=== PATIENT | male | born 1960 | race Caucasian/White ===

== ENCOUNTER → 2016-11-23 | Outpatient (CLI) | payer BC ==
--- OUTSIDE RECORDS SUMMARY | 2016-11-23 15:37 | XMS REPORT | Continuity of Care Document ---
Author Author Formerly [facility], [facility]–1983 [facility] Address Unknown Phone Unavailable Allergies Active Description Code Type Severity Reaction Onset Reported/Identified Relationship to Patient Clinical Status Yes No Known Drug Allergies [id number] Drug Allergy Mild N/A 01/04/2010 Medications Problems Date Dx Coded Attending Type Code Diagnosis Diagnosed By 12/06/2010 Ot 792.2 12/06/2010 Ot V25.8 01/04/2011 Ot V25.8 03/16/2011 Ot 792.2 03/16/2011 Ot V25.8 07/17/2012 V04.81 FLU DX (3 YRS AND ABOVE, IM) 07/17/2012 SOCORRO TRINIDAD DO V04.81 FLU DX (3 YRS AND ABOVE, IM) 01/13/2015 Ot V01.79 01/13/2015 Ot V25.8 01/13/2015 Ot 792.2 01/13/2015 Ot V25.8 01/13/2015 GUILLERMINA WOODS DO Ot 726.2 01/13/2015 GUILLERMINA WOODS DO Ot 840.4 Procedures Results Encounters ACCT No. Visit Date/Time Discharge Status Pt. Type Provider Facility Loc./Unit Complaint [id number] 07/09/2014 11:10:00 07/09/2014 23: 59:59 CLS Outpatient SOCORRO TRINIDAD DO [id number] 07/17/2012 09:51:00 07/17/2012 23: 59:59 CLS Outpatient
--- NOTE | 2016-11-23 17:11 | Diagnostic Imaging Report ---
PROCEDURE: MRI lumbar spine. TECHNIQUE: Multiplanar, multisequence MRI of the lumbar spine was performed without contrast. INDICATION: Chronic back pain with bilateral leg pain and numbness. FINDINGS: There is normal alignment of the posterior spinal line. The vertebral body heights are preserved. There is significant disc height loss at L5/S1 level. Slight disc height loss is also seen in mid lumbar spine levels. The bone marrow demonstrates mild Modic type I and slightly prominent Modic type II changes around endplates in the lower lumbar spine most prominent around L5/S1. There is a 1 cm lesion with fat density within L3 vertebral body suggestive of hemangioma. No suspicious marrow lesion is identified. The posterior elements of L5 on the right side demonstrate prominent bone marrow edema that appears to be centered around the right L4/L5 facet joint presumably related to facet arthropathy. This also involves the adjacent articulating facets and at the adjacent lamina of L4 posterior elements. The cauda equina and conus medullaris appear grossly unremarkable. T12/L1: There is no significant disc herniation. No spinal canal or foraminal stenosis. L1/L2: No disc herniation. There is mild facet hypertrophy. No central canal, lateral recess or foraminal stenosis. L2/L3: There is a diffuse disc bulge and mild to moderate facet arthropathy. There is mild central canal stenosis reducing the AP dimension of the canal to 9.5 mm. There is also mild lateral recess stenosis on the right and mild to moderate lateral recess stenosis on the left. The foramina are patent. L3/L4: There is a diffuse disc bulge and moderate facet arthropathy. There is mild to moderate central canal stenosis reducing the AP dimension of the canal to 8.8 cm. There is mild to moderate lateral recess stenosis bilaterally. The foramina demonstrate no significant stenosis on the right and mild stenosis on the left. L4/L5: There is diffuse disc bulge and bilateral moderate to severe facet arthropathy. There is mild to moderate central canal stenosis reducing the AP dimension of the canal to 7.6 mm. Moderate to severe lateral recess stenosis is seen bilaterally abutting the descending L5 nerve roots. This is slightly worse on the right side. The foramina demonstrate mild stenosis bilaterally. L5/S1: There is a diffuse disc bulge and mild facet arthropathy. No central canal stenosis. No lateral recess stenosis. The foramina demonstrate bilateral narrowing, mild on the left and mild to moderate on the right side. IMPRESSION: Degenerative disc and facet changes in the lower lumbar spine. There is moderate to severe lateral recess stenosis at L4/L5 bilaterally, worse on the right side. Other findings as above. Dictated by: Dictated on workstation # [id number]
== END ==
LOC: RAD 15:34
PROVIDERS: ATTEND Orthopaedic Surgery
DX: M48.06 Spinal stenosis, lumbar region (principal)
CPT/HCPCS: 72148

== ENCOUNTER → 2017-01-04 | Outpatient (CLI) | payer BC ==
--- NOTE | 2017-01-04 17:53 | Diagnostic Imaging Report ---
EXAMINATION: Magnetic resonance imaging of the left knee without intravenous contrast DATE: January 04, 2017. COMPARISON: None. INDICATION: A 56-year-old male, left knee pain and swelling. TECHNIQUE: Multiplanar, multisequence non contrast enhanced MR imaging was accomplished. FINDINGS: MENISCI: There is an extensive complex tear involving the anterior horn, body, and posterior horn of the medial meniscus with loss and/or displacement of segments of the posterior horn of the medial meniscus. There is 5 mm medial meniscal extrusion with meniscal tissue extending into the superior gutter. There are multiloculated parameniscal cysts subjacent to the body and anterior horn of the medial meniscus measuring up to roughly 4 x 9 x 14 mm in extent. Several small parameniscal cysts are present adjacent to the medial meniscus. The lateral meniscus is grossly intact. LIGAMENTS AND TENDONS: There is mucoid degeneration of the anterior cruciate ligament with intact anterior cruciate ligament fibers. The posterior cruciate ligament is intact. There is mass effect on the superficial component of the medial collateral ligament complex relating to the extruded medial meniscus. The medial collateral ligament complex is intact. The iliotibial band, mid third lateral capsular ligament, fibular collateral ligament, biceps femoris tendon and conjoined tendon are intact. The quadriceps tendon and patella ligament are intact. JOINT: There are broad areas of approximately 25% cartilage loss involving the mid weightbearing portion of the medial femoral condyle and subjacent medial tibial plateau. There is a full-thickness cartilage defect at the junction of the mid and posterior weightbearing portions of the medial femoral condyle which measures roughly 5 x 3 mm in size as illustrated on sagittal T2 sequence image 20. The lateral and patellofemoral compartment cartilage is intact. There is no large knee joint effusion. There is no prominent synovitis or identified intra-articular body. There is a low signal intra-articular body posterior to the posterior horn of the medial meniscus on axial T2 fat saturation sequence image 12 which measures roughly 5 x 4 x 4 mm in size. BONE: There is unremarkable bone marrow signal. Specifically, negative for fracture, osteomyelitis, osteonecrosis, or marrow replacing process. BURSAE AND SOFT TISSUES: There is a very small amount of fluid in the popliteal fossa without sizable Lord's cyst. There is a multiloculated ganglion cyst near the attachment site of the medial head of gastrocnemius which measures 12 x 19 x 12 mm in size. There is fatty atrophy and edema of the medial head of gastrocnemius which may relate to denervation. There is also low-level edema within the soleus muscle which is nonspecific and could relate to strain injury and/or denervation-related changes. The lateral head of gastrocnemius is unremarkable in signal. There is nonspecific prepatellar subcutaneous edema. IMPRESSION: 1. Extensive complex tear of the entire medial meniscus as described above with medial meniscal extrusion and multiloculated parameniscal cysts adjacent to the body and anterior horn of the medial meniscus. 2. Grossly intact lateral meniscus. 3. Mucoid degeneration of the anterior cruciate ligament which is otherwise intact. Intact posterior cruciate ligament. 4. Cartilage defects of the medial compartment as described above. No large knee joint effusion. Intra-articular body posterior to the posterior horn of the medial meniscus which measures 5 x 4 x 4 mm in size. 5. Mild fatty atrophy of the medial head of gastrocnemius muscle which likely relates to denervation-related changes. Nonspecific low-level edema in the soleus without identified fatty muscle atrophy. This potentially could reflect denervation-related signal changes and/or muscle strain. Normal signal and muscle bulk of the lateral head of gastrocnemius. Dictated by: Dictated on workstation # [id number]
== END ==
LOC: RAD 16:31
PROVIDERS: ATTEND Orthopaedic Surgery
DX: M23.8X2 Other internal derangements of left knee (principal)
CPT/HCPCS: 73721

== ENCOUNTER 2017-08-24 05:34 | Outpatient (CLI) | payer BC ==
[~2017-08-24] VITALS: Ht 188 cm; Wt 95.3 kg
[2017-08-24] MEDS ORDERED: TAMS0.4C98 PO (12:54)
== END 2017-08-24 12:56 ==
LOC: PREOP 05:34
PROVIDERS: ATTEND Internal Medicine
DX: Z01.818 Encounter for other preprocedural examination (principal); Z12.11 Encounter for screening for malignant neoplasm of colon

== ENCOUNTER 2017-08-31 07:04 | Day surgery (SDC) | payer BC ==
[~2017-08-31] VITALS: Ht 188 cm; Wt 95.3 kg
[~2017-08-31 07:04] MED LIST: TAMS0.4C98 PO
[2017-08-31] MEDS ORDERED: LIDOCAINE JELLY 2% (XYLOCAINE) 5 ML TUBE MM PRN (07:15)
[2017-08-31] MEDS ORDERED: MIDAZOLAM 2 MG/2 ML (VERSED) VIAL IVP PRN (07:15)
[2017-08-31] MEDS ORDERED: 1/2 NS IV SOLUTION 1,000 ML IV ONE (07:21)
[2017-08-31 07:24] VITALS: BP 139/87
[2017-08-31] MEDS: fentaNYL INJECTION 100 MCG/2 ML AMP IVP PRN ×3 (07:30→08:20)
[2017-08-31] MEDS ORDERED: fentaNYL INJECTION 100 MCG/2 ML AMP ONE (07:41)
[2017-08-31] MEDS ORDERED: LIDOCAINE JELLY 2% (XYLOCAINE) 5 ML TUBE ONE (07:41)
[2017-08-31] MEDS ORDERED: MIDAZOLAM 2 MG/2 ML (VERSED) VIAL ONE ×2 (07:41)
[2017-08-31] MEDS ORDERED: 1/2 NS IV SOLUTION 1,000 ML IV SCH (07:45)
--- NOTE | 2017-08-31 07:54 | Pre-Op Note & Conscious Sedat ---
Pre-Operative Progress Note H&P Reviewed The H&P was reviewed, patient examined and no changes noted. Date H&P Reviewed: Aug 31, 2017 Time H&P Reviewed: 07:53 Conscious Sedation Pre-Proced ASA Class: 1 Airway Mallampati Classification: ([place] appropriate class) I. II. III, IV Lungs Heart ASA score ASA 1: a normal healthy patient ASA 2: a patient with a mild systemic disease (mid diabetes, controlled hypertension, obesity ASA 3: a patient with a severe systemic disease that limits activity (angina , COPD, prior Myocardial infarction) ASA 4: a patient with an incapacitating disease that is a constant threat to life (CHF, renal failure) ASA 5: a moribund patient not expected to survive 24 hrs. (ruptured aneurysm) ASA 6: a declared brain patient whose organs are being harvested. For emergent operations, add the letter E after the classification Grade 2 Sedation Plan: Analgesia, Amnesia, Plan communicated to team members, Discussed options with patient/fam, Discussed risks with patient/fam Note The patient is an appropriate candidate to undergo the planned procedure, sedation, and anesthesia. The patient immediately re-assessed prior to indication. JOSEPH COSBY MD Aug 31, 2017 07:54
[2017-08-31 08:50] VITALS: BP 148/87
[2017-08-31 09:15] VITALS: BP 149/93
[2017-08-31 09:58] VITALS: BP 149/93
--- NOTE | 2017-08-31 13:35 | OPERATIVE REPORT ---
DATE OF SERVICE: COLONOSCOPY SUMMARY I am his primary care physician. INDICATION FOR PROCEDURE: Screening colonoscopy. DESCRIPTION OF PROCEDURE: The patient was placed in the left lateral decubitus position. Prior to undergoing colonoscopy, digital rectal evaluation was performed. Anal sphincter tone was normal and the perianal reflexes intact. The prostate is moderately enlarged, anodular and nontender to digital inspection with uniform consistency to digital inspection. No other abnormalities, no additional inspection of anal canal or distal rectal vault. The colonoscope was then inserted into the rectum under direct visualization advanced to the cecum. The cecum was identified by identification of the ileocecal valve and cecal strap. Photographic documentation was obtained. Careful inspection was made as the colonoscope was withdrawn. Quality of the prep was good. The patient tolerated the procedure well. FINDINGS: There was no evidence for internal or external hemorrhoids. The rectum was unremarkable. Present in the sigmoid colon approximately 25 cm from the anal verge was a diminutive hyperplastic appearing polyp. It was photographed and biopsied and ablated with no subsequent blood loss. The remainder of the sigmoid colon was unremarkable. No evidence for diverticular disease was noted. The descending colon, splenic flexure, transverse colon, hepatic flexure, ascending colon and cecum were normal. ASSESSMENT: 1. Diminutive hyperplastic appearing polyp was removed via hot forceps from the sigmoid colon approximately 25 cm from the anal verge. This was an otherwise normal colonoscopy of the cecum. 2. Digital rectal evaluation was compatible with moderate benign prostatic hypertrophy is noted above. As long as there are no surprises on histopathology report, we will advocate consideration for repeat screening colonoscopy in 10 years as there is no reported family history for colon cancer. Job ID: [id number] DocumentID: [id number] Dictated Date: 08/31/2017 08:52:59 [employer] Operator Date: 08/31/2017 13:34:57 Dictated By: JOSEPH COSBY MD
== END 2017-08-31 09:30 | disposition home or self-care (01) ==
LOC: ENDO 07:04
PROVIDERS: ATTEND Internal Medicine
DX: Z12.11 Encounter for screening for malignant neoplasm of colon (principal); K63.5 Polyp of colon; N40.0 Benign prostatic hyperplasia without lower urinary tract symptoms; Z80.42 Family history of malignant neoplasm of prostate

== ENCOUNTER → 2017-11-23 | Outpatient (CLI) | payer BC ==
--- NOTE | 2017-11-23 10:42 | Diagnostic Imaging Report ---
PROCEDURE: MR imaging cervical spine without contrast. TECHNIQUE: Multiplanar, multisequence MR imaging of the cervical spine was performed without contrast. INDICATION: Neck pain. COMPARISON: None. FINDINGS: Minimal retrolisthesis of C4 and C5, C5 on C6. Alignment is otherwise unremarkable. Vertebral body heights are preserved. There are moderate to advanced degenerative endplate changes most marked at C4-C7. Bone marrow signal is otherwise unremarkable. The visualized paravertebral soft tissues are unremarkable. The cervical carotid and vertebral artery flow voids are preserved. C2-C3: No spinal canal or neural foraminal narrowing. C3-C4: Posterior disc osteophyte complex results in mild spinal canal narrowing. Uncovertebral and facet arthropathy result in advanced bilateral neural foraminal narrowing. C4-C5: Posterior disc osteophyte complex results in moderate spinal canal narrowing. Uncovertebral and facet arthropathy result in moderate bilateral neural foraminal narrowing. C5-C6: Posterior disc osteophyte complex results in advanced spinal canal narrowing. Uncovertebral and facet arthropathy result in advanced bilateral neural foraminal narrowing. C6-C7: Posterior disc osteophyte complex results in advanced spinal canal narrowing. There is abnormal T2 signal within the cervical cord at this level. There is advanced bilateral neural foraminal narrowing. C7-T1: Uncovertebral and facet arthropathy results in [id number] left neural foraminal narrowing. No substantial spinal canal or right neural foraminal narrowing. IMPRESSION: 1. 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 2. Diffuse moderate and advanced neural foraminal narrowing detailed above level by level. 3. No acute osseous findings. Dictated by: Dictated on workstation # [id number]
== END ==
LOC: RAD 09:05
PROVIDERS: ATTEND Physician Assistant
DX: M48.03 Spinal stenosis, cervicothoracic region (principal); M47.812 Spondylosis without myelopathy or radiculopathy, cervical region; M43.12 Spondylolisthesis, cervical region
CPT/HCPCS: 72141

== ENCOUNTER → 2018-05-20 | Outpatient (CLI) | payer BC ==
--- NOTE | 2018-05-20 10:52 | Diagnostic Imaging Report ---
PROCEDURE: MRI right joint upper extremity without contrast. TECHNIQUE: Multiplanar, multisequence non contrast-enhanced MRI of the right upper extremity was accomplished. INDICATION: Right shoulder pain and decreased range of motion There is no significant joint effusion. There are surgical changes in the lateral humeral head related to previous rotator cuff surgery. There is mild increased T2 signal within the distal supraspinatus tendon which may represent area of tendinosis or partial tear. No full-thickness tear or retraction is identified. Long head of the biceps tendon is unremarkable. There is mild fraying of the glenoid labrum indicating degenerative change. Remainder of the rotator cuff is intact. No bone marrow signal abnormality is seen to indicate an acute fracture. IMPRESSION: Abnormal signal within the distal supraspinatus tendon which may be related to scarring from previous surgery and injury. Partial tear is not excluded, however, there is no full-thickness tear or retraction identified. Dictated by: Dictated on workstation # [id number]
== END ==
LOC: RAD 09:10
PROVIDERS: ATTEND Physician Assistant
DX: M25.511 Pain in right shoulder (principal)
CPT/HCPCS: 73221

== ENCOUNTER 2018-06-07 08:02 | Outpatient (RCR) | payer BC | END 2018-06-10 07:35 | disposition home or self-care (01) | PROVIDERS: ATTEND Physician Assistant | DX: G83.21 Monoplegia of upper limb affecting right dominant side (principal); M50.90 Cervical disc disorder, unspecified, unspecified cervical region ==

== ENCOUNTER 2018-07-11 14:31 | Outpatient (RCR) | payer BC | END 2018-07-11 17:00 | disposition home or self-care (01) | PROVIDERS: ATTEND Physician Assistant | DX: G83.21 Monoplegia of upper limb affecting right dominant side (principal); M50.90 Cervical disc disorder, unspecified, unspecified cervical region ==

== ENCOUNTER 2019-05-04 04:41 | Emergency (ER) | payer BC ==
[~2019-05-04] VITALS: Ht 188 cm; Wt 90.7 kg
[2019-05-04] MEDS ORDERED: KETOROLAC 30 MG/ML VIAL ONE (05:16)
[2019-05-04] MEDS ORDERED: fentaNYL INJECTION 100 MCG/2 ML AMP ONE (05:16)
[2019-05-04] MEDS ORDERED: NS IV 1000 ML 1,000 ML ONE (05:16)
[2019-05-04] MEDS ORDERED: ONDANSETRON 4 MG/2 ML (SDV) Z0FRAN ONE (05:16)
[2019-05-04] MEDS ORDERED: NS IV 1000 ML 1,000 ML IV STA (05:22)
[2019-05-04] MEDS ORDERED: fentaNYL INJECTION 100 MCG/2 ML AMP IVP STA (05:22)
[2019-05-04 05:29] LABS: BASOPHILS % (AUTO) 0 % (0-10); EOSINOPHILS # (AUTO) 0.3 10^3/uL (0.0-0.3); EOSINOPHILS % (AUTO) 3 % (0-10); HEMATOCRIT 44 % (40-54); HEMOGLOBIN 15.1 G/DL (13.3-17.7); LYMPHOCYTES # (AUTO) 1.8 X 10^3 (1.0-4.0); LYMPHOCYTES % (AUTO) 19 % (12-44); MEAN CORPUSCULAR HEMOGLOBIN 30 PG (25-34); MEAN CORPUSCULAR HGB CONC 35 G/DL (32-36); MEAN CORPUSCULAR VOLUME 87 FL (80-99); MEAN PLATELET VOLUME 10.3 FL (7.4-10.4); MONOCYTES # (AUTO) 1.1 X 10^3 (0.0-1.0); MONOCYTES % (AUTO) 11 % (0-12); NEUTROPHILS # (AUTO) 6.2 X 10^3 (1.8-7.8); NEUTROPHILS % (AUTO) 67 % (42-75); PLATELET COUNT 262 10^3/uL (130-400); WHITE BLOOD COUNT 9.3 10^3/uL (4.3-11.0)
[2019-05-04] MEDS ORDERED: KETOROLAC 30 MG/ML VIAL IVP ONE (05:30)
[2019-05-04] MEDS ORDERED: ONDANSETRON 4 MG/2 ML (SDV) Z0FRAN IVP ONE ×2 (05:30→07:45)
[2019-05-04 05:42] LABS: ALANINE AMINOTRANSFERASE 18 U/L (0-55); ALBUMIN 4.1 GM/DL (3.2-4.5); ALKALINE PHOSPHATASE 50 U/L (40-136); BILIRUBIN,TOTAL 0.5 MG/DL (0.1-1.0); BUN/CREATININE RATIO 19; CALCIUM 9.5 MG/DL (8.5-10.1); CARBON DIOXIDE 25 MMOL/L (21-32); CHLORIDE 101 MMOL/L (98-107); CREATININE SERUM 0.98 MG/DL (0.60-1.30); GFR ESTIMATED > 60; GLUCOSE 135 MG/DL (70-105); LIPASE 30 U/L (8-78); MAGNESIUM 1.6 MG/DL (1.6-2.4); POTASSIUM 3.8 MMOL/L (3.6-5.0); SODIUM 138 MMOL/L (135-145); TOTAL PROTEIN 7.4 GM/DL (6.4-8.2)
[2019-05-04 05:55] LABS: BILIRUBIN,URINE NEGATIVE (NEGATIVE); CLARITY,URINE CLEAR; COLOR,URINE YELLOW; GLUCOSE, URINE (UA) NEGATIVE (NEGATIVE); KETONES,URINE NEGATIVE (NEGATIVE); LEUKOCYTE ESTERASE ,URINE 1+ (NEGATIVE); NITRITE,URINE NEGATIVE (NEGATIVE); PH,URINE 7 (5-9); PROTEIN,URINE NEGATIVE (NEGATIVE); UROBILINOGEN,URINE NORMAL (NORMAL)
--- NOTE | 2019-05-04 06:05 | ED Abdominal Pain ---
General Chief Complaint: Abdominal/GI Problems Stated Complaint: ABD PAIN Nursing Triage Note: sharp pain starte yesterday at 1600 after eating [employer], has taken antacids and anti nausea medicine but pain continues. Sepsis Screen: No Definite Risk Source of Information: Patient, Family Exam Limitations: No Limitations (LINDA LOUIS MD) History of Present Illness Date Seen by Provider: May 04, 2019 Time Seen by Provider: 05:13 Initial Comments Here with report of acute onset of epigastric abdominal pain that has persisted over the last 12 hours. He has tried vair-psu-ubyqvfe antacids and nausea medicine but has persistence of pain. He has never had anything like this before. Denies difficulties with stools. States urine looked a little green. Timing/Duration: 12 Hours Severity/Quality: Moderate, Aching, Burning Location: Epigastric Radiation: No Radiation Activities at Onset: None Modifying Factors: Worsens With Eating; Improves With Other (no relieving factors) Associated Symptoms: No Back Pain, No Chest Pain, No Fever/Chills; Nausea/Vomiting; No Shortness of Air, No Weakness (LINDA LOUIS MD) Allergies and Home Medications Allergies Coded Allergies: No Known Drug Allergies (Unverified , 05/04/19) Home Medications Hyoscyamine Sulfate 0.125 Mg Tab.subl, 1-2 TAB SL Q4H Prescribed by: HENRY IBARRA on 05/04/19738 Ondansetron 8 Mg Tab.rapdis, 8 MG PO Q6H Prescribed by: HENRY IBARRA on 05/04/19738 Pantoprazole Sodium 40 Mg Tablet.dr, 40 MG PO DAILY Prescribed by: HENRY IBARRA on 05/04/19738 Tamsulosin HCl 0.4 Mg Cap, 0.4 MG PO HS, (Reported) Tramadol HCl 50 Mg Tablet, 50 MG PO Q4H PRN for PAIN-MODERATE Prescribed by: HENRY IBARRA on 05/04/19738 Patient Home Medication List Home Medication List Reviewed: Yes (LINDA LOUIS MD) Review of Systems Review of Systems Constitutional: No chills, No fever EENTM: No Symptoms Reported Respiratory: No Symptoms Reported Cardiovascular: No Symptoms Reported Gastrointestinal: See HPI, Abdominal Pain; Denies Diarrhea; Nausea; Denies Vomiting Genitourinary: No Symptoms Reported Musculoskeletal: No back pain, No muscle pain Skin: no symptoms reported (LINDA LOUIS MD) All Other Systems Reviewed Negative Unless Noted: Yes (LINDA LOUIS MD) Past Dgnimmx-Rxwflm-Wjjmnm Hx Past Med/Social Hx: Reviewed Nursing Past Med/Soc Hx (LINDA LOUIS MD) Patient Social History Alcohol Use: Denies Use Recreational Drug Use: No Former Smoker, Quit: Aug 24, 2002 2nd Hand Smoke Exposure: No Recent Foreign Travel: No Contact w/Someone Who Travel: No Recent Infectious Disease Expo: No Recent Hopitalizations: No Physical Abuse: No Sexual Abuse: No Mistreated: No Fear: No (LINDA LOUIS MD) Immunizations Up To Date Tetanus Booster (TDap): Unknown Date of Influenza Vaccine: Jun 11, 2017 (LINDA LOUIS MD) Seasonal Allergies Seasonal Allergies: Yes (LINDA LOUIS MD) Past Medical History Surgeries: Yes (back (ruptured disc)95, L hand carpal tunnel 96, R rotator cuff carpel 09 ) Respiratory: No Currently Using CPAP: No Currently Using BIPAP: No Cardiac: No Neurological: No Reproductive Disorders: No Genitourinary: No Gastrointestinal: Yes Gastroesophageal Reflux Musculoskeletal: No Endocrine: Yes Diabetes, Non-Insulin dep Loss of Vision: Bilateral Hearing Impairment: Denies Cancer: No Psychosocial: No Integumentary: No Blood Disorders: No (LINDA LOUIS MD) Surgeries: Yes (back (ruptured disc)95, L hand carpal tunnel 96, R rotator cuff carpel 09; BILATERAL INGUINAL HERNIA REPAIRS ) Abdominal Genitourinary: Yes Benign Prostatic Hyperpl Gastrointestinal: Yes Abdominal Hernia (HENRY IBARRA DO) Family Medical History Reviewed Nursing Family Hx (LINDA LOUIS MD) Physical Exam Vital Signs Vital Signs - First Documented 05/04/19 05/04/19 04:47 07:54 Temp 98.2 Pulse 74 Resp 20 B/P (MAP) 157/99 (118) Pulse Ox 98 O2 Delivery Room Air (HENRY IBARRA DO) Vital Signs Capillary Refill : Less Than 3 Seconds (LINDA LOUIS MD) Height/Weight/BMI Height: 6'2.00" Weight: 200lbs. 0oz. [id number]; 27.0 BMI Method:Stated General Appearance: WD/WN, no apparent distress HEENT: PERRL/EOMI, pharynx normal Neck: full range of motion, supple Respiratory: lungs clear, normal breath sounds Cardiovascular: regular rate, rhythm, no murmur Peripheral Pulses: 2+ Dorsalis Pedis (R), 2+ Left Dors-Pedis (L), 2+ Radial Pulses (R), 2+ Radial Pulses (L) Gastrointestinal: normal bowel sounds, soft, no organomegaly, no pulsatile mass, tenderness (epigastric) Extremities: non-tender, normal inspection Back: normal inspection, no CVA tenderness, no vertebral tenderness Neurologic/Psychiatric: alert, oriented x 3 Skin: normal color, warm/dry (LINDA LOUIS MD) Progress/Results/Core Measures Results/Orders Lab Results Laboratory Tests Test 05/04/19 04:58 05/04/19 05:35 Range/Units White Blood Count 9.3 4.3-11.0 10^3/uL Red Blood Count 5.05 4.35-5.85 10^6/uL Hemoglobin 15.1 13.3-17.7 G/DL Hematocrit 44 40-54 % Mean Corpuscular Volume 87 80-99 FL Mean Corpuscular Hemoglobin 30 25-34 PG Mean Corpuscular Hemoglobin Concent 35 32-36 G/DL Red Cell Distribution Width 13.0 10.0-14.5 % Platelet Count 262 130-400 10^3/uL Mean Platelet Volume 10.3 7.4-10.4 FL Neutrophils (%) (Auto) 67 42-75 % Lymphocytes (%) (Auto) 19 12-44 % Monocytes (%) (Auto) 11 0-12 % Eosinophils (%) (Auto) 3 0-10 % Basophils (%) (Auto) 0 0-10 % Neutrophils # (Auto) 6.2 1.8-7.8 X 10^3 Lymphocytes # (Auto) 1.8 1.0-4.0 X 10^3 Monocytes # (Auto) 1.1 H 0.0-1.0 X 10^3 Eosinophils # (Auto) 0.3 0.0-0.3 10^3/uL Basophils # (Auto) 0.0 0.0-0.1 10^3/uL Sodium Level 138 135-145 MMOL/L Potassium Level 3.8 3.6-5.0 MMOL/L Chloride Level 101 98-107 MMOL/L Carbon Dioxide Level 25 21-32 MMOL/L Anion Gap 12 5-14 MMOL/L Blood Urea Nitrogen 19 H 7-18 MG/DL Creatinine 0.98 0.60-1.30 MG/DL Estimat Glomerular Filtration Rate > 60 BUN/Creatinine Ratio 19 Glucose Level 135 H 70-105 MG/DL Calcium Level 9.5 8.5-10.1 MG/DL Corrected Calcium 9.4 8.5-10.1 MG/DL Magnesium Level 1.6 1.6-2.4 MG/DL Total Bilirubin 0.5 0.1-1.0 MG/DL Aspartate Amino Transf (AST/SGOT) 19 5-34 U/L Alanine Aminotransferase (ALT/SGPT) 18 0-55 U/L Alkaline Phosphatase 50 40-136 U/L C-Reactive Protein High Sensitivity 0.04 0.00-0.50 MG/DL Total Protein 7.4 6.4-8.2 GM/DL Albumin 4.1 3.2-4.5 GM/DL Lipase 30 8-78 U/L Urine Color YELLOW Urine Clarity CLEAR Urine pH 7 5-9 Urine Specific Imbler 1.015 L 1.016-1.022 Urine Protein NEGATIVE NEGATIVE Urine Glucose (UA) NEGATIVE NEGATIVE Urine Ketones NEGATIVE NEGATIVE Urine Nitrite NEGATIVE NEGATIVE Urine Bilirubin NEGATIVE NEGATIVE Urine Urobilinogen NORMAL NORMAL MG/DL Urine Leukocyte Esterase 1+ H NEGATIVE Urine RBC (Auto) 1+ H NEGATIVE Urine RBC 5-10 H /HPF Urine WBC 0-2 /HPF Urine Squamous Epithelial Cells 2-5 /HPF Urine Crystals NONE /LPF Urine Bacteria TRACE /HPF Urine Casts NONE /LPF Urine Mucus SMALL H /LPF Urine Culture Indicated NO (ORAL IBARRAA Shane VILLATORO) My Orders Orders - HENRY IBARRA DO Fentanyl Injection (Sublimaze Injection (05/04/19 07:45) Hyoscyamine Sl Tablet (Levsin Sl Tablet) (05/04/19 07:45) Ondansetron Injection (Zofran Injectio (05/04/19 07:45) (HENRY IBARRA DO) Medications Given in ED Current Medications Medications Dose Ordered Sig/Patricia Route Start Time Stop Time Status Last Admin Dose Admin Fentanyl Citrate 50 mcg ONCE ONCE IVP 05/04/19 07:45 05/04/19 07:46 DC 8/25/19 07:41 50 MCG Hyoscyamine Sulfate 0.25 mg ONCE ONCE PO 05/04/19 07:45 05/04/19 07:46 DC 05/04/19 07:39 0.25 MG Ondansetron HCl 4 mg ONCE ONCE IVP 05/04/19 07:45 05/04/19 07:46 DC 05/04/19 07:40 4 MG (HENRY IBARRA DO) Vital Signs/I&O 05/04/19 05/04/19 04:47 07:54 Temp 98.2 Pulse 74 81 Resp 20 16 B/P (MAP) 157/99 (118) 147/88 (107) Pulse Ox 98 98 O2 Delivery Room Air (HENRY IBARRA DO) Blood Pressure Mean: 118 Progress Progress Note : Progress Note Seen and evaluated. IV, labs, UA, normal saline 1 L bolus, Zofran 4 mg IV, fentanyl 50 g IV and Toradol 15 mg IV ordered. Monitor patient. 0610: Labs reviewed and no significant findings. Patient feeling a little better. Given patient's age and significant pain associated with event, we will go ahead and get CT abdomen and pelvis to evaluate for structural disease or other concerns. Care transferred to Dr. Ibarra pending CT scan. (LINDA LOIUS MD) Progress Note : Progress Note 0615--ASSUMED CARE FROM DR. LOUIS, CT PENDING. PT STATES PAIN IS BETTER, BUT NOT GONE, STILL WITH SOME NAUSEA. ADDITIONAL MEDICATIONS ORDERED PT STATES PAIN IS LOCALIZED TO RUQ AT THIS TIME, AND IS REPRODUCIBLE WITH PALPATION. . (HENRY IBARRA DO) Diagnostic Imaging Comments CT ABDOMEN/PELVIS--ASYMMETRIC THICKENING ALONG RIGHT LATERAL WALL OF URINARY BLADDER, UNCERTAIN ETIOLOGY, MILDLY ENLARGED PROSTATE--PER STAT RAD VIA FAX AT 0721. ALSO PER LOCAL RADIOLOGIST REPORT RECEIVED AT SAME TIME OF 07--ALSO NOTED TO HAVE HYDROPS OF GALLBLADDER. SURGICAL MESH IN ANTERIOR ASPECT OF LOWER PELVIS (HENRY IBARRA DO) Departure Impression Primary Impression: RUQ abdominal pain Additional Impressions: Enlarged gallbladder ABNORMAL FINDING ON BLADDER ON CT Disposition: HOME, SELF-CARE Condition: Improved Departure-Patient Inst. Referrals: JOSEPH COSBY MD (PCP) Primary Care Physician LUIS A QUIROZ DO Patient Instructions: Acute Abdomen (Belly Pain), Adult (DC), POSS GALLSTONE- W/BILIARY COLIC Add. Discharge Instructions: FOLLOW UP WITH DR. QUIROZ THIS WEEK FOR FURTHER EVALUATION OF ABDOMINAL PAIN / GALLBLADDER FOLLOW UP WITH DR. SEARS THIS WEEK FOR FURTHER EVALUATION OF BLADDER / PROSTATE CLEAR LIQUIDS--WATER, BROTH, JELLO, GATORADE WHEN YOUR PAIN IS BETTER, ADD BRATS DIET TO CLEAR LIQUIDS--BANANAS, RICE, APPLESAUCE, TOAST, SALTINES All discharge instructions reviewed with patient and/or family. Voiced understanding. Scripts Pantoprazole Sodium (Protonix) 40 Mg Tablet. 40 MG PO DAILY, #15 TAB Prov: HENRY IBARRA DO 05/04/19 Tramadol HCl (Ultram) 50 Mg Tablet 50 MG PO Q4H PRN for PAIN-MODERATE for 3 Days, TAB Prov: HENRY IBARRA DO 05/04/19 Hyoscyamine Sulfate (Levsin-Sl) 0.125 Mg Tab.subl 1-2 TAB SL Q4H for Abdominal Pain, #15 TAB Prov: HENRY IBARRA DO 05/04/19 Ondansetron (Ondansetron Odt) 8 Mg Tab.rapdis 8 MG PO Q6H for Nausea/Vomiting, #10 TAB Prov: HENRY IBARRA DO 05/04/19 LINDA LOUIS MD May 04, 2019 06:05 HENRY IBARRA DO May 04, 2019 06:35
[2019-05-04 06:20] LABS: BACTERIA,URINE TRACE /HPF; WBC,URINE 0-2 /HPF
[2019-05-04] MEDS ORDERED: IOHEXOL 350 MG/ML 100 ML (OMNIPAQUE 350) VIAL IV ONE (06:30)
[2019-05-04] MEDS ORDERED: HOLD METFORMIN - RECEIVED CONTRAST 20 ML VIAL IV SCH (06:30)
[2019-05-04] MEDS ORDERED: NS 100 ML (IVPB) BAG IV ONE (06:30)
[2019-05-04] MEDS ORDERED: ESCI20TA PO (06:50)
[2019-05-04] MEDS ORDERED: METF-397 PO (06:50)
--- NOTE | 2019-05-04 07:19 | Diagnostic Imaging Report ---
PROCEDURE: CT abdomen and pelvis with contrast. TECHNIQUE: Multiple contiguous axial images were obtained through the abdomen and pelvis after administration of intravenous contrast. Auto Exposure Controls were utilized during the CT exam to meet ALARA standards for radiation dose reduction. INDICATION: Abdominal pain. COMPARISON: 01/04/2010 FINDINGS: The heart size is normal. The lung bases are clear. The liver is normal in size and without focal lesions. There is no biliary ductal dilatation. The gallbladder is somewhat hydropic, the spleen is normal. The pancreas and adrenal glands are unremarkable. Kidneys are normal in appearance. The aorta is nonaneurysmal. Bowel gas pattern is nonspecific. There is no free air. There is no ascites. No focal inflammatory changes. Surgical mesh in the anterior aspect of the lower pelvis. Bladder is normal. There is no pelvic mass or adenopathy. There are degenerative changes in the spine. IMPRESSION: 1. Hydropic gallbladder. If there is high clinical concern for gallbladder disease further evaluation with ultrasound should be considered. 2. No other acute abnormality in the abdomen or pelvis Dictated by: Dictated on workstation # [id number]
[2019-05-04] MEDS ORDERED: TRAM-42 PO (07:39)
[2019-05-04] MEDS ORDERED: ONDA8TAB13 PO (07:39)
[2019-05-04] MEDS ORDERED: HYOS0.1283 SL (07:39)
[2019-05-04] MEDS ORDERED: PANT40TA2 PO (07:39)
[2019-05-04] MEDS ORDERED: HYOSCYAMINE 0.125 MG (LEVSIN) TAB PO ONE (07:45)
[2019-05-04] MEDS ORDERED: fentaNYL INJECTION 100 MCG/2 ML AMP IVP ONE (07:45)
[2019-05-04 07:54] VITALS: BP 147/88
== END 2019-05-04 07:52 | disposition home or self-care (01) ==
LOC: EDUNIT# 04:41 → ER 04:43
DX: K82.8 Other specified diseases of gallbladder (principal); R10.11 Right upper quadrant pain; K21.9 Gastro-esophageal reflux disease without esophagitis; E11.9 Type 2 diabetes mellitus without complications; N40.0 Benign prostatic hyperplasia without lower urinary tract symptoms; Z87.891 Personal history of nicotine dependence; Z98.890 Other specified postprocedural states
CPT/HCPCS: 36415; 74177; 80053; 81000; 83690; 83735; 85025; 86141

== ENCOUNTER 2019-05-06 05:37 | Outpatient (CLI) | payer BC ==
[~2019-05-06] VITALS: Ht 188 cm; Wt 90.7 kg
[~2019-05-06 05:37] MED LIST changes: +ESCI20TA PO; +HYOS0.1283 SL; +METF-397 PO; +ONDA8TAB13 PO; +PANT40TA2 PO; +TRAM-42 PO
[2019-05-07] MEDS ORDERED: DOCU-143 PO (12:32)
[2019-05-07] MEDS ORDERED: ACHD5005 PO (12:32)
== END 2019-05-06 12:31 | disposition home or self-care (01) ==
LOC: PREOP 05:37
PROVIDERS: ATTEND Surgery
DX: Z01.818 Encounter for other preprocedural examination (principal)

== ENCOUNTER 2019-05-07 09:17 | Day surgery (SDC) | payer BC ==
[~2019-05-07] VITALS: Ht 188 cm; Wt 90.7 kg
[2019-05-07] VITALS (9 sets, daily range): BP systolic 102–138; BP diastolic 57–94
[2019-05-07] MEDS: LACTATED RINGERS 1,000 ML IV PRN ×2 (09:50→12:00)
--- NOTE | 2019-05-07 09:50 | Progress Note-Pre Operative ---
Pre-Operative Progress Note H&P Reviewed The H&P was reviewed, patient examined and no changes noted. Date Seen by Provider: May 07, 2019 Time Seen by Provider: 09:50 Date H&P Reviewed: May 07, 2019 Time H&P Reviewed: 09:50 Pre-Operative Diagnosis: hydrops gallbladder LUIS A QUIROZ DO May 07, 2019 09:50
[2019-05-07] MEDS ORDERED: BUP/EPI 0.5% 1:200,000 (MARCAINE) 10ML VIAL IJ ONE (10:05)
[2019-05-07] MEDS ORDERED: IOPAMIDOL 61% 30 ML (ISOVUE 300) VIAL IV ONE (10:05)
[2019-05-07] MEDS ORDERED: MIDAZOLAM 2 MG/2 ML (VERSED) VIAL ONE (10:16)
[2019-05-07] MEDS ORDERED: fentaNYL INJECTION 100 MCG/2 ML AMP ONE (10:16)
[2019-05-07] MEDS ORDERED: LIDOCAINE PF 2% 5 ML (XYLOCAINE) VIAL ONE (10:21)
[2019-05-07] MEDS ORDERED: GLYCOPYRROLATE 0.2 MG/ML (ROBINUL) 2 ML VIAL ONE (10:21)
[2019-05-07] MEDS ORDERED: proPOfol 200 MG/20 ML (DIPRIVAN) VIAL IV ONE (10:21)
[2019-05-07] MEDS ORDERED: SEVOFLURANE (ULTANE) 15 ML INHAL SOLN ONE ×2 (10:21→12:38)
[2019-05-07] MEDS ORDERED: NEOSTIGMINE 3 MG/3 ML VIAL ONE (10:21)
[2019-05-07] MEDS ORDERED: ONDANSETRON 4 MG/2 ML (SDV) Z0FRAN ONE (10:21)
[2019-05-07] MEDS ORDERED: ROCURONIUM 10 MG/ML 5 ML SYRINGE IV ONE (10:21)
[2019-05-07] MEDS: ceFAZolin 2 GM/50 ML NS 50 ML IV ONE (11:13)
[2019-05-07] MEDS ORDERED: DOCU-143 PO (12:32)
[2019-05-07] MEDS ORDERED: ACHD5005 PO (12:32)
--- NOTE | 2019-05-07 12:33 | Discharge Inst-Simple/Standard ---
Discharge Inst-Standard Discharge Medications New, Converted or Re-Newed RX: RX on Chart Patient Instructions/Follow Up Plan of Care/Instructions/FU: 2 weeks Blake Activity as Tolerated: No Discharge Diet: Regular Diet Other Inst to Patient Follow up Appt: Make appointment for 2 weeks. Instructions: No lifting greater than 10 pounds. No strenuous activity. May shower in 24 hours, no tub bath or soaking. Use incentive spirometer at home as directed. No Smoking Skin/Wound Care: You have special glue over incisions it will fall off on its own. Symptoms to Report: Appetite Changes, Extremity Discoloration, Numbness/Tingling, Swelling Increased, Bleeding Excessive, Eyesight Changes, Pain Increased, Urine Color Change, Constipation(Persistent), Fever over 101 degree F, Pain/Pressure in chest, Urinating Difficulty, Cough Up/Vomit Blood, Heart Beat Irreg/Pounding, Pain/Pressure in jaw, Vaginal Bleeding Increase, Cramps in feet or legs, Lightheadedness, Pain/Pressure in shoulder, Diarrhea(Persistent), Memory Changes Suddenly, Questions/Concerns, Weight gain consecutive days, Dizziness/Fainting, Nausea/Vomiting, Shortness of Breath, Weight gain over 2 pounds. If eyes or skin turn yellow notify physician. If questions or concerns contact your physician Or seek help at emergency department. LUIS A QUIROZ DO May 07, 2019 12:33
[2019-05-07] MEDS ORDERED: ONDANSETRON 4 MG/2 ML (SDV) Z0FRAN IVP PRN (13:00)
[2019-05-07] MEDS ORDERED: morphine INJ 10 MG/ML 1ML (SYR OR VIAL) IVP ONE (13:00)
--- NOTE | 2019-05-07 13:43 | Anesthesia-General Post-Op ---
General Patient Condition Mental Status/LOC: Same as Preop Cardiovascular: Satisfactory Nausea/Vomiting: Absent Respiratory: Satisfactory Pain: Controlled Complications: Absent Post Op Complications Complications None Follow Up Care/Instructions Patient Instructions None needed. Anesthesia/Patient Condition Patient Condition Patient is doing well, no complaints, stable vital signs, no apparent adverse anesthesia problems. No complications reported per nursing. CAROLINA MARTINEZ CRNA May 07, 2019 13:43
[2019-05-07] MEDS ORDERED: HYDROcodone/APAP 5 MG/325 MG (LORTAB) TAB ONE (14:13)
[2019-05-07] MEDS ORDERED: HYDROcodone/APAP 5 MG/325 MG (LORTAB) TAB PO ONE (14:15)
--- NOTE | 2019-05-07 14:40 | Diagnostic Imaging Report ---
INDICATION: Cholecystectomy. COMPARISON: 05/04/2019. TOTAL FLUOROSCOPY TIME: 7.3 seconds. TOTAL NUMBER OF FLUOROSCOPIC IMAGES OBTAINED: 31. FINDINGS: Multiple intraoperative images intensifier views of the abdomen were obtained during intraoperative cholangiogram. Images provided show contrast filling of intra and extrahepatic biliary ductal systems. There is no extravasation. No intraluminal filling defects are seen. Contrast empties into the small bowel as expected. Please note, the interpreting radiologist was not present during the procedure. IMPRESSION: 1. Fluoroscopic guidance provided during intraoperative cholangiogram as above. Dictated by: Dictated on workstation # [id number]
--- NOTE | 2019-05-08 01:19 | OPERATIVE REPORT ---
DATE OF SERVICE: 05/07/2019 PREOPERATIVE DIAGNOSIS: Hydrops gallbladder. POSTOPERATIVE DIAGNOSIS: Hydrops gallbladder with cystic duct obstruction from stone. PROCEDURE: Laparoscopic cholecystectomy with intraoperative cholangiogram. SURGEON: Luis A Lozano DO. ENROBING MACHINE CORDER: Dr. Heard, assisted in retraction, dissection and closure. ANESTHESIA: General. ESTIMATED BLOOD LOSS: Minimal. COMPLICATIONS: None. INDICATIONS: The patient is a 59-year-old male with abdominal pain and workup consistent with hydrops gallbladder. He understands risks and benefits of procedure and wished to proceed with procedure. Consent was signed in the chart. DESCRIPTION OF PROCEDURE: The patient was taken to the operating suite, was prepped and draped in sterile fashion. Timeout was performed. Local anesthetic was infiltrated before incisions were made. A 12 mm incision was made at the umbilicus and cautery dissection was taken down. Through the subcutaneous tissue, fascia was scored and the abdomen was entered. A 0 Vicryl was placed in a [id number] fashion for closure at the end of the case. A balloon trocar was inserted into the abdomen and pneumoperitoneum was achieved. Under direct visualization of the laparoscope, a 5 mm trocar was placed in subxiphoid region and two 5 mm trocars were placed in the right upper quadrant. Gallbladder was distended, significantly thickened, grasped, elevated. Multiple adhesions to the gallbladder were then continued to be bluntly taken down along with the duodenum stuck up to the gallbladder. This continued to be bluntly and taken down with cautery dissection. The cystic duct and cystic artery were then dissected. A round clip was placed on the distal portion of the cystic duct. The cystic duct was then partially transected and there was obstruction of the cystic duct, which [place] was used to milk multiple stones out of the cystic duct. The Arrow catheter was then inserted into the cystic duct and cholangiogram was performed. There were no filling defects. Contrast made its way into the duodenum without difficulty. Catheter was then removed. Clips were placed on the proximal portion of the cystic duct and the duct was then transected. The cystic artery was then dissected out. Clips were placed on the proximal and distal portion of this and this was transected. Hook cautery used to dissect the gallbladder from the gallbladder fossa achieving hemostasis. Once removed, it was placed in an Endobag and removed through the 12 mm trocar site. The abdomen was then irrigated with copious amounts of irrigation and suction. Hemostasis was achieved. The abdomen was then desufflated, the trocars were removed. The 0 Vicryl was closed that was placed at the beginning of the case and then the abdomen was then washed and dried. Skin was closed using 4-0 Monocryl in subcuticular fashion and then Skin Affix was placed over the incisions. The patient tolerated the procedure well without any complications and taken to recovery room in stable condition. Job ID: [id number] DocumentID: [id number] Dictated Date: 05/07/2019 15:51:22 Rehab Director Occupational Therapist Date: 05/08/2019 01:18:20 Dictated By: LUIS A LOZANO DO
== END 2019-05-07 15:04 | disposition home or self-care (01) ==
LOC: SDC 09:17
PROVIDERS: ATTEND Surgery
DX: K80.12 Calculus of gallbladder with acute and chronic cholecystitis without obstruction (principal); K82.1 Hydrops of gallbladder; E11.9 Type 2 diabetes mellitus without complications; N40.0 Benign prostatic hyperplasia without lower urinary tract symptoms; G89.29 Other chronic pain; M54.9 Dorsalgia, unspecified; F32.9 Major depressive disorder, single episode, unspecified; Z79.84 Long term (current) use of oral hypoglycemic drugs; Z79.899 Other long term (current) drug therapy; Z87.891 Personal history of nicotine dependence; Z80.3 Family history of malignant neoplasm of breast; Z83.3 Family history of diabetes mellitus; Z82.49 Family history of ischemic heart disease and other diseases of the circulatory system; Z80.8 Family history of malignant neoplasm of other organs or systems
CPT/HCPCS: 82962; 87081; 88304

== ENCOUNTER → 2021-02-11 | Outpatient (CLI) | payer BC ==
[~2021-02-11] MED LIST changes: +ACHD5005 PO; +DOCU-143 PO; -TAMS0.4C98 PO; +TMSL.4C PO
--- NOTE | 2021-02-11 12:50 | Diagnostic Imaging Report ---
PROCEDURE: CT urinary tract, rule out kidney stone. TECHNIQUE: Multiple contiguous axial images were obtained through the abdomen and pelvis without the use of intravenous contrast. Auto Exposure Controls were utilized during the CT exam to meet ALARA standards for radiation dose reduction. INDICATION: Right flank pain. Elevated white blood cell count. COMPARISON: 05/04/2019 FINDINGS: The gallbladder is surgically absent. No pathological dilatation of the biliary ducts. The spleen, adrenals and pancreas nonacute. There are no radiopaque urinary tract calculi. There is no hydroureteronephrosis is infraumbilical abdominal wall surgical mesh. The appendix cannot be visualized and is presumed surgically absent. There were no pericecal or right lower quadrant inflammatory changes to suggest an underlying nonvisualized appendicitis. There are a few noninflamed diverticula at the sigmoid colon. There are postsurgical changes and tissue thickening along the right pelvic side wall interposed between the acetabular roof and the lateral margin of the urinary bladder. This is present on a study of 04/2019. This may be slightly more thickened than on the prior. It is presumed postoperative changes with a previous bladder surgery. No acute inflammatory process is identified. No bowel, biliary or urinary tract obstruction. There are degenerative changes to the bony structures with no acute osseous pathology. IMPRESSION: Unobstructed nonacute urinary tracts. No hepatobiliary abnormality. No diverticulitis or findings of appendicitis. Redemonstration of postoperative changes to the pelvis with abdominal wall mesh and scattered surgical clips, perivesical and along the right pelvic sidewall which shows similar degrees of thickening when compared to the prior, perhaps slightly more pronounced, but again presumed postoperative. No findings to suggest hemorrhage, obstruction or focal inflammatory process. Dictated by: Dictated on workstation # [id number]
[2021-02-11 13:03] LABS: ALANINE AMINOTRANSFERASE 24 U/L (0-55); ALBUMIN 3.9 GM/DL (3.2-4.5); ALKALINE PHOSPHATASE 54 U/L (40-136); BILIRUBIN,TOTAL 0.5 MG/DL (0.1-1.0); BUN/CREATININE RATIO 21; CALCIUM 9.6 MG/DL (8.5-10.1); CARBON DIOXIDE 27 MMOL/L (21-32); CHLORIDE 100 MMOL/L (98-107); CREATININE SERUM 1.08 MG/DL (0.60-1.30); GFR ESTIMATED > 60; GLUCOSE 111 MG/DL (70-105); POTASSIUM 3.9 MMOL/L (3.6-5.0); SODIUM 138 MMOL/L (135-145); TOTAL PROTEIN 7.6 GM/DL (6.4-8.2)
== END ==
LOC: RAD 11:43
PROVIDERS: ATTEND Nurse Practitioner Family
DX: R10.9 Unspecified abdominal pain (principal); D72.829 Elevated white blood cell count, unspecified
CPT/HCPCS: 36415; 74176; 80053

== ENCOUNTER → 2021-08-16 | Outpatient (CLI) | payer MEDICARE | LOC: LABNPT 06:26 | PROVIDERS: ATTEND Orthopaedic Surgery Orthopaedic Surgery of the Spine | DX: Z01.89 Encounter for other specified special examinations (principal) | CPT/HCPCS: 87635 ==

== ENCOUNTER 2022-09-08 12:48 | Outpatient (RCR) | payer MEDICARE, OTHER | END 2022-09-09 | disposition home or self-care (01) | PROVIDERS: ATTEND Orthopaedic Surgery | DX: M75.81 Other shoulder lesions, right shoulder (principal); E11.9 Type 2 diabetes mellitus without complications ==

== ENCOUNTER 2022-09-14 08:31 | Outpatient (RCR) | payer MEDICARE, OTHER | END 2022-10-10 | disposition home or self-care (01) | PROVIDERS: ATTEND Orthopaedic Surgery | DX: M75.81 Other shoulder lesions, right shoulder (principal); E11.9 Type 2 diabetes mellitus without complications ==

== ENCOUNTER → 2023-04-18 | Outpatient (CLI) | payer MEDICARE, OTHER ==
--- NOTE | 2023-04-18 12:20 | Diagnostic Imaging Report ---
PROCEDURE: US left lower extremity venous. TECHNIQUE: Multiple real-time grayscale images were obtained over the left lower extremity in various projections. Additional duplex Doppler and color Doppler images were also obtained. INDICATION: Left lower extremity edema and pain. Venous system widely patent. Normal color flow compressibility and waveforms. No fluid collection or mass documented. IMPRESSION: Normal negative unilateral left thoracotomy venous Doppler and ultrasound. Dictated by: Dictated on workstation # [id number]
== END ==
LOC: RAD 11:26
PROVIDERS: ATTEND Nurse Practitioner Family
DX: M79.604 Pain in right leg (principal); R60.0 Localized edema; Z98.890 Other specified postprocedural states

== ENCOUNTER → 2023-08-09 | Outpatient (RCR) | payer MEDICARE, OTHER | END | disposition still patient (30) | PROVIDERS: ATTEND Orthopaedic Surgery | DX: M17.12 Unilateral primary osteoarthritis, left knee (principal); Z96.652 Presence of left artificial knee joint ==